=== PATIENT | female | born 1975 | race Caucasian/White ===

== ENCOUNTER 2018-08-28 11:37 | Day surgery (SDC) | payer MEDICAID ==
[~2018-08-28] VITALS: Ht 154.9 cm; Wt 60.0 kg
[2018-08-28] MEDS ORDERED: SODIUM CHLORIDE 0.9% 1,000 ML IV ONE (11:57)
[2018-08-28 12:22] LABS: BASOPHILS % 0.3 % (0.0-2.0); EOSINOPHILS % 0.2 % (0.0-5.0); HEMATOCRIT. 33.9 % (36.0-48.0); HEMOGLOBIN. 11.5 g/dL (12.0-16.0); LYMPHOCYTES % 12.2 % (20.0-50.0); MEAN CORPUSCULAR HEMOGLOBIN 31.2 pg (28.0-32.0); MEAN CORPUSCULAR VOLUME 91.6 fL (81.0-99.0); MEAN PLATELET VOLUME 8.2 fl (7.4-10.4); MONOCYTES % 3.2 % (2.0-8.0); NEUTROPHILS % 84.1 % (40.0-76.0); PLATELET 281 x1000/uL (130-400); RED BLOOD CELL COUNT 3.71 mill/uL (4.2-5.4); RED CELL DISTRIBUTION WIDTH 14.1 % (11.6-14.6)
[2018-08-28 12:29] LABS: CHLORIDE 105 mEq/L (98-107)
[2018-08-28 12:39] LABS: B-HCG QUANTITATIVE 743 mIU/mL (<3)
[2018-08-28] MEDS ORDERED: MIDAZOLAM HCL 2 MG/2 ML VIAL ONE (16:25)
[2018-08-28] MEDS ORDERED: PROPOFOL 200MG/20ML VIAL IV ONE (16:25)
[2018-08-28] MEDS ORDERED: SUCCINYLCHOLINE CHLORIDE 200MG/10ML IV ONE (16:26)
[2018-08-28] MEDS ORDERED: METOCLOPRAMIDE HCL 10MG/2ML VIAL ONE (16:26)
[2018-08-28] MEDS ORDERED: ONDANSETRON HCL 4MG/2ML INJ ONE (16:26)
[2018-08-28] MEDS ORDERED: FENTANYL CITRATE/PF 50MCG/ML 2ML VIAL ONE (16:56)
[2018-08-28] MEDS ORDERED: DEXT 5%/0.45% NACL 1000ML 1,000 ML IV SCH (17:08)
[2018-08-28] MEDS ORDERED: LORAZEPAM 2MG/ML CPJ IV PRN (17:15)
[2018-08-28] MEDS ORDERED: HYDRALAZINE 20MG/ML VIAL IV PRN (17:15)
[2018-08-28] MEDS ORDERED: DIPHENHYDRAMINE 50MG/ML VIAL IV PRN (17:15)
[2018-08-28] MEDS ORDERED: IPRATROPIUM/ALBUTEROL 0.5-3(2.5)MG/3ML NEB INH PRN (17:15)
[2018-08-28] MEDS ORDERED: HYDROCODONE/ACETAMINOPHEN 10/325MG TABLET PO PRN (17:15)
[2018-08-28] MEDS ORDERED: MAGNESIUM/ALUMINUM HYDROXIDE/SIMETHICONE 30ML UDC PO PRN (17:15)
[2018-08-28] MEDS ORDERED: CLONIDINE 0.1MG TABLET PO PRN (17:15)
[2018-08-28] MEDS ORDERED: DOCUSATE SODIUM 100MG CAPSULE PO PRN (17:15)
[2018-08-28] MEDS ORDERED: GUAIFENESIN 200MG/10ML SUGAR FREE UDC PO PRN (17:15)
[2018-08-28] MEDS ORDERED: ONDANSETRON HCL 4MG/2ML INJ IV PRN ×3 (17:15→18:00)
[2018-08-28] MEDS ORDERED: METHYLERGONOVINE MALEATE 0.2 MG/ML ONE (17:24)
[2018-08-28] MEDS ORDERED: HYDROMORPHONE HCL/PF 2MG/ML CPJ IV PRN ×2 (17:30→18:00)
[2018-08-28] MEDS ORDERED: DEXT 5%/0.45% NACL KCL 20MEQ/L 1,000 ML IV SCH (17:53)
[2018-08-28] MEDS ORDERED: KETOROLAC 60MG/2ML VIAL IM SCH (18:00)
[2018-08-28] MEDS ORDERED: MEPERIDINE HCL/PF 25MG/ML CPJ IV PRN (18:00)
[2018-08-28] MEDS ORDERED: ACETAMINOPHEN 325MG TABLET PO ONE (18:00)
[2018-08-28] MEDS ORDERED: ACETAMINOPHEN 325MG TABLET PO PRN (18:00)
[2018-08-28 19:51] LABS: HEMATOCRIT. 26.3 % (36.0-48.0); MEAN CORPUSCULAR HEMOGLOBIN 30.9 pg (28.0-32.0); MEAN CORPUSCULAR VOLUME 90.6 fL (81.0-99.0); MEAN PLATELET VOLUME 7.9 fl (7.4-10.4); PLATELET 158 x1000/uL (130-400); RED BLOOD CELL COUNT 2.91 mill/uL (4.2-5.4); RED CELL DISTRIBUTION WIDTH 14.5 % (11.6-14.6)
[2018-08-28 20:21] LABS: PLATELET ESTIMATE NORMAL
[2018-08-28 20:54] VITALS: BP 100/62
[2018-08-28] MEDS ORDERED: SODIUM CHLORIDE 0.9% INJ 3ML FLUSH IVF SCH (22:00)
== END 2018-08-28 17:53 | disposition home or self-care (01) ==
LOC: ER 11:52 → EDBEDREQSVC 14:23 → OR 16:44 → CANRESERV 21:19 → ENRESERV 21:19 → CANBEDREQ 21:50 → ER 23:16
PROVIDERS: ATTEND Specialist
DX: O03.4 Incomplete spontaneous abortion without complication (principal); D64.9 Anemia, unspecified; E87.6 Hypokalemia
CPT/HCPCS: 36415; 59812; 76801; 76817; 80053; 84702; 85025; 86850; 86900; 86901; 86920; 88305; 93005; 96360; 96372; 99291; J0330; J1885; J2210; J2250; J2405; J2704; J2765; J3010; J7030; J7040; P9016